=== PATIENT | male | born 1990 | race Caucasian/White ===

== ENCOUNTER 2018-01-20 00:10 | Emergency (ER) | END 2018-01-20 04:52 | disposition left against medical advice (07) ==

== ENCOUNTER 2018-01-20 10:18 | Emergency (ER) | END 2018-01-20 11:35 | disposition home or self-care (01) ==

== ENCOUNTER 2018-05-06 11:44 | Emergency (ER) | END 2018-05-06 13:34 | disposition home or self-care (01) ==

== ENCOUNTER 2018-06-03 11:20 | Emergency (ER) | END 2018-06-03 12:13 | disposition home or self-care (01) ==

== ENCOUNTER 2018-06-18 14:40 | Emergency (ER) | END 2018-06-18 17:40 | disposition home or self-care (01) ==